=== PATIENT | female | born 1990 | race Caucasian/White ===

== ENCOUNTER 2019-11-05 15:47 | Outpatient (CLI) | payer OTHER | END 2019-11-05 15:53 | disposition home or self-care (01) | LOC: RAD 15:47 | DX: R05 Cough (principal); J06.9 Acute upper respiratory infection, unspecified ==

== ENCOUNTER 2019-12-04 11:51 | Emergency (ER) | payer OTHER ==
[~2019-12-04] VITALS: Ht 167.6 cm; Wt 81.6 kg
== END 2019-12-04 16:16 | disposition home or self-care (01) ==
LOC: ER 11:51
DX: J02.9 Acute pharyngitis, unspecified (principal)

== ENCOUNTER 2020-08-27 13:43 | Emergency (ER) | payer OTHER ==
[~2020-08-27] VITALS: Ht 167.6 cm; Wt 80.7 kg
== END 2020-08-27 18:59 | disposition home or self-care (01) ==
LOC: ER 13:43
DX: N92.1 Excessive and frequent menstruation with irregular cycle (principal); R10.2 Pelvic and perineal pain; K29.70 Gastritis, unspecified, without bleeding; E86.0 Dehydration

== ENCOUNTER 2020-12-23 12:11 | Emergency (ER) | payer OTHER ==
[~2020-12-23] VITALS: Ht 167.6 cm; Wt 78.0 kg
== END 2020-12-23 14:57 | disposition home or self-care (01) ==
LOC: ER 12:11
DX: S43.491A Other sprain of right shoulder joint, initial encounter (principal); S80.02XA Contusion of left knee, initial encounter; S80.01XA Contusion of right knee, initial encounter; W01.198A Fall on same level from slipping, tripping and stumbling with subsequent striking against other object, initial encounter; Y93.02 Activity, running; Y92.69 Other specified industrial and construction area as the place of occurrence of the external cause; Y99.8 Other external cause status

== ENCOUNTER 2021-02-17 14:59 | Emergency (ER) | payer OTHER ==
[~2021-02-17] VITALS: Ht 167.6 cm; Wt 80.7 kg
== END 2021-02-17 19:20 | disposition home or self-care (01) ==
LOC: ER 14:59
DX: A90 Dengue fever [classical dengue] (principal); N39.0 Urinary tract infection, site not specified; Z11.52 Encounter for screening for COVID-19

== ENCOUNTER 2022-01-17 11:08 | Emergency (ER) | payer OTHER ==
[~2022-01-17] VITALS: Ht 167.6 cm; Wt 86.2 kg
== END 2022-01-17 13:20 | disposition home or self-care (01) ==
LOC: ER 11:08
DX: J45.909 Unspecified asthma, uncomplicated (principal)

== ENCOUNTER 2022-11-30 12:02 | Emergency (ER) | payer OTHER ==
[~2022-11-30] VITALS: Ht 167.6 cm; Wt 86.2 kg
[2022-11-30] MEDS ORDERED: MUCINEX D ER 11 EACH PO (15:51)
== END 2022-11-30 15:56 | disposition home or self-care (01) ==
LOC: ER 12:02
DX: J06.9 Acute upper respiratory infection, unspecified (principal); J45.909 Unspecified asthma, uncomplicated; Z20.822 Contact with and (suspected) exposure to COVID-19

== ENCOUNTER → 2023-04-05 | Emergency (ER) | payer OTHER ==
[~2023-04-05] VITALS: Ht 167.6 cm; Wt 86.2 kg
[~2023-04-05] MED LIST: MUCINEX D ER 11 EACH PO; PROVENTIL S2 MG/5 ML PO
== END | disposition left against medical advice (07) ==
LOC: ER 19:35
DX: Z53.21 Procedure and treatment not carried out due to patient leaving prior to being seen by health care provider (principal)

== ENCOUNTER 2024-09-13 15:52 | Emergency (ER) | payer OTHER ==
[~2024-09-13] VITALS: Ht 167.6 cm; Wt 77.1 kg
[2024-09-13] MEDS ORDERED: ZYRTEC10 M3 PO (16:45)
[2024-09-13 17:36] LABS: HEMATOCRIT 39.1 % (36.0-45.00); HEMOGLOBIN 13.6 g/dL (12.0-15.00); MEAN CELL VOLUME 95.5 fL (80.00-100.00); MEAN CORPUSCULAR HEMOGLOBIN 33.2 pg (27.00-32.0); MEAN CORPUSCULAR HGB CONC 34.8 g/dl (32.0-36.0); PLATELET COUNT 163 K/uL (150-450); RED CELL DISTRIBUTION WIDTH 12.5 % (11.5-14.5)
== END 2024-09-13 18:36 | disposition home or self-care (01) ==
LOC: ER 15:55
PROVIDERS: Preventive Medicine Public Health & General Preventive Medicine
DX: J06.9 Acute upper respiratory infection, unspecified (principal); J00 Acute nasopharyngitis [common cold]; Z20.822 Contact with and (suspected) exposure to COVID-19; Z88.6 Allergy status to analgesic agent